=== PATIENT | male | born 1960 | race Two or more races ===

== ENCOUNTER → 2017-05-26 | Outpatient (REF) | payer OTHER ==
[~2017-05-26] MED LIST: ASPI1CHW2; CAPT1TAB17; CARB1TAB20; DEBR6.5S4; DOXA1TAB41; LORA2TAB9; SIMV20TA2
[2017-05-26 16:33] LABS: ANION GAP 8 MEQ/L (8-16); BLOOD UREA NITROGEN 16 MG/DL (7-18); CALCIUM LEVEL 7.8 MG/DL (8.5-10.1); CARBON DIOXIDE LEVEL 28 MEQ/L (21-32); CHLORIDE LEVEL 105 MEQ/L (98-107); CHOLESTEROL LEVEL 162 MG/DL (<200); GLOMERULAR FILTRATION RATE > 60.0 (>56); GLUCOSE, FASTING 102 MG/DL (70-105); POTASSIUM SERUM 3.9 MEQ/L (3.5-5.1); SODIUM LEVEL 141 MEQ/L (136-145); TRIGLYCERIDES LEVEL 223 MG/DL (<150)
== END ==
LOC: M SFHCPLAZ 13:02
PROVIDERS: ATTEND Internal Medicine
DX: E78.5 Hyperlipidemia, unspecified (principal); I10 Essential (primary) hypertension; R35.8 Other polyuria; R63.1 Polydipsia

== ENCOUNTER 2017-07-19 09:32 | Emergency (ER) | payer OTHER ==
[~2017-07-19] VITALS: Ht 170.2 cm; Wt 97.9 kg
[~2017-07-19 09:32] MED LIST changes: -CARB1TAB20; +CARB1TAB20 PO
[2017-07-19 09:33] VITALS: BP 131/74
[2017-07-19] MEDS ORDERED: AMLO5TAB2 PO (09:42)
[2017-07-19] MEDS ORDERED: CIPRODEX AD (11:39)
== END 2017-07-19 11:48 | disposition home or self-care (01) ==
LOC: M ED 09:32
DX: H60.91 Unspecified otitis externa, right ear (principal); Z79.82 Long term (current) use of aspirin; Z79.899 Other long term (current) drug therapy

== ENCOUNTER 2017-07-23 09:17 | Emergency (ER) | payer OTHER ==
[~2017-07-23] VITALS: Ht 170.2 cm; Wt 97.3 kg
[~2017-07-23 09:17] MED LIST changes: +AMLO5TAB2 PO; +CIPRODEX AD
[2017-07-23] MEDS ORDERED: PROC2.5C PR (11:07)
[2017-07-23] MEDS ORDERED: MIRA3350 PO (11:07)
[2017-07-23] MEDS ORDERED: COLA100C5 PO (11:07)
[2017-07-23 11:52] VITALS: BP 136/72
== END 2017-07-23 11:55 | disposition home or self-care (01) ==
LOC: M ED 09:17
DX: K59.00 Constipation, unspecified (principal); I10 Essential (primary) hypertension; R56.9 Unspecified convulsions; Z79.82 Long term (current) use of aspirin; Z79.899 Other long term (current) drug therapy